=== PATIENT | male | born 1955 | race Caucasian/White ===

== ENCOUNTER 2016-11-30 19:09 | Emergency (ER) | payer BC, OTHER ==
[~2016-11-30] VITALS: Ht 182.9 cm; Wt 97.5 kg
[2016-11-30 19:13] VITALS: Ht 182.9 cm; Wt 97.5 kg
--- NOTE | 2016-11-30 19:30 | EN ---
Date/Time of Note Date/Time of Note DATE: 11/30/16 TIME: 19:28 ER Progress Note This 61-year-old male presents here in emergency department for complaints of dizziness nausea vomiting numbness and tingling all over upper extremities, he was working out in the sun today, he suddenly felt really nauseous, numbness and tingling, felt weak. Patient's complaining of numbness and tingling of her extremities. Family is here with the patient, verbalizes that the patient verbalized that he felt like he was going to , almost passing out and he felt really weak and dizzy, patient denies any chest pain at this time. Patient denies any shortness of breath at this time. Patient denies any headache. Patient states that he is unable to tolerate oral liquids and unable to tolerate oral food. Upon evaluation of the patient, stable at this time, ordered an EKG for the patient, patient is waiting for ER 1 that assignment at this time. BHARATH BOWENS NP November 30, 2016 19:30
[2016-11-30] MEDS ORDERED: SOD CHLORIDE 0.9% 1,000 ML IV STA ×2 (19:51→21:45)
--- NOTE | 2016-11-30 20:02 | ERA ---
ER Documentation Chief Complaint Date/Time DATE: 11/30/16 TIME: 19:55 Chief Complaint dizzy 6 hrs ago"states forgot to drink water and feels dehydrated, vomitin HPI This 61-year-old male previously healthy presenting for complaints of dizziness nausea, vomiting, numbness and tingling all over right upper extremity. He was working out in the sun today on his roof and he suddenly started to feel dizzy, nauseated, with lower back pain. He had generalized weakness and just did not feel right. He got off the roof and went inside. He tried to drink water and threw it up. He felt some transient tingling in his right upper extremity, now resolved. He denies any significant abdominal pain but feels the discomfort in his lower abdomen. No headache or vision disturbance. No focal weakness or numbness at this time . Family is here with the patient, verbalizes that the patient verbalized that he felt like he was going to , almost passing out and he felt really weak and dizzy. ROS All systems reviewed and are negative except as per history of present illness. Medications Home Meds No Active Prescriptions or Reported Meds Allergies Allergies: Coded Allergies: No Known Allergy (Unverified , 11/30/16) PMhx/Soc Medical and Surgical Hx: pt denies Medical Hx, pt denies Surgical Hx Hx Alcohol Use: No Hx Substance Use: No Hx Tobacco Use: No Smoking Status: Never smoker FmHx Family History: No coronary disease, No diabetes Physical Exam Vitals Vital Signs Date Time Temp Pulse Resp B/P Pulse Ox O2 Delivery O2 Flow Rate FiO2 11/30/16 19:13 97.5 60 20 121/68 98 Physical Exam Const: Somewhat pale, no distress, nontoxic, nondiaphoretic Head: Atraumatic Eyes: Normal Conjunctiva, PERRLA, EOMI, no nystagmus ENT: Dry oral mucosa Neck: Full range of motion. No JVD. No meningismus. Resp: Clear to auscultation bilaterally Cardio: Bradycardic with regular rhythm, no murmurs Abd: Soft, non tender, non distended. Normal bowel sounds Skin: No petechiae or rashes Back: No midline or flank tenderness Ext: No cyanosis, or edema. No calf tenderness. 2+ pulses in distal extremities, equal bilaterally. Neur: Awake and alert and oriented 3, cranial nerves intact, strength and sensations intact in all 4 extremities, normal gait Psych: Normal Mood and Affect Result Diagram: 11/30/16195511/30/161955 Results 24 hrs Laboratory Tests Test 11/30/16 19:56 11/30/16 20:14 White Blood Count 12.910^3/ul Red Blood Count 5.2510^6/ul Hemoglobin 16.1g/dl Hematocrit 47.4% Mean Corpuscular Volume 90.3fl Mean Corpuscular Hemoglobin 30.7pg Mean Corpuscular Hemoglobin Concent 34.0g/dl Red Cell Distribution Width 12.5% Platelet Count 86657^3/UL Mean Platelet Volume 11.1fl Neutrophils % 90.3% Lymphocytes % 4.4% Monocytes % 4.7% Eosinophils % 0.0% Basophils % 0.2% Nucleated Red Blood Cells % 0.0/100WBC Neutrophils # 11.610^3/ul Lymphocytes # 0.610^3/ul Monocytes # 0.610^3/ul Eosinophils # 0.010^3/ul Basophils # 0.010^3/ul Nucleated Red Blood Cells # 0.010^3/ul Prothrombin Time 13.4Sec Prothrombin Time Ratio 1.0 INR International Normalized Ratio 1.02 Activated Partial Thromboplast Time 28.4Sec D-Dimer 695.77ng/ml D-Dimer Comment Sodium Level 142mmol/L Potassium Level 4.0mmol/L Chloride Level 100mmol/L Carbon Dioxide Level 25mmol/L Anion Gap 21 Blood Urea Nitrogen 26mg/dl Creatinine 1.41mg/dl Glucose Level 120mg/dl Calcium Level 9.7mg/dl Total Bilirubin 0.7mg/dl Direct Bilirubin 0.00mg/dl Indirect Bilirubin 0.7mg/dl Aspartate Amino Transf (AST/SGOT) 35IU/L Alanine Aminotransferase (ALT/SGPT) 49IU/L Alkaline Phosphatase 67IU/L Creatine Kinase 120IU/L Creatine Kinase Index 0.9 Creatinine Kinase MB (Mass) 1.08ng/ml Troponin I < 0.012ng/ml Total Protein 8.1g/dl Albumin 5.0g/dl Globulin 3.10g/dl Albumin/Globulin Ratio 1.61 Bedside Glucose 91mg/dL Current Medications Medications (Trade) Dose Ordered Sig/Joe Route PRN Reason Start Time Stop Time Status Last Admin Dose Admin Sodium Chloride (NS) 1,000 ml @ 1,000 mls/hr Q1H STAT IV 11/30/16 19:51 11/30/16 20:50 DC 11/30/16 20:07 Ondansetron HCl 4 mg 4 mg ONCE STAT IV 11/30/16 20:04 11/30/16 20:05 DC 11/30/16 20:07 Sodium Chloride (NS) 1,000 ml @ 1,000 mls/hr Q1H ONCE IV 11/30/16 21:00 11/30/16 21:59 11/30/16 20:59 Procedures/MDM EKG #1: Rate/Rhythm: Sinus bradycardia at 54 bpm QRS, ST, T-waves: Incomplete right bundle branch block, no changes consistent w/ acute ischemia Impression: No evidence of ischemia or arrhythmia EKG #2: Rate/Rhythm: Sinus bradycardia at 50 bpm QRS, ST, T-waves: Incomplete right bundle branch block, no changes consistent w/ acute ischemia Impression: No evidence of ischemia or arrhythmia Chest x-ray: No evidence for active cardiopulmonary disease. Labs: CBC shows mild leukocytosis with 90% neutrophils BMP shows elevation of BUN and creatinine, elevated anion gap Blood glucose normal Troponin, CK-MB, CK normal Urine dipstick with 3+ ketones, 3+ blood, 1+ protein D-dimer elevated MDM: Patient is presenting with generalized weakness and dizziness, likely secondary to dehydration. His vitals were notable for sinus bradycardia upon arrival, but otherwise normal. 2 L of IV fluid were started. Labs showed leukocytosis with elevated neutrophil count. There is also elevation of BUN and creatinine, likely prerenal. Initial cardiac enzymes were negative. EKG only showed incomplete right bundle branch block without other evidence of ischemia. D- dimer was ordered given the patient is PERC negative but low risk for PE. It was slightly elevated, so CT angiogram of the chest was ordered to evaluate for pulmonary embolism and is pending. Urinalysis was sent and is pending. Urine dipstick showed 3+ ketones, 3+ blood, 1+ protein with negative nitrites and leuk esterase. Labs show no evidence of rhabdomyolysis. I have a low suspicion that his symptoms are secondary to acute coronary syndrome or aortic dissection. There is no evidence of acute surgical abdomen. I believe if the pending studies are normal and the patient is feeling back to his normal self, he will be able to be discharged after IV hydration with close outpatient follow -up. Patient will be signed out to Dr. Sheldon, who will follow up on the pending studies. I discussed the plan with the patient and his sister and they feel comfortable with the plan for discharge if everything is normal and he feels well. Departure Diagnosis: Primary Impression: Generalized weakness Additional Impressions: Dehydration Acute prerenal azotemia Condition: LASHONDA Voss MD November 30, 2016 20:02
[2016-11-30] MEDS ORDERED: ONDANSETRON 4 MG INJ IV STA (20:04)
[2016-11-30 20:05] LABS: ADD SCAN DIFF NO
[2016-11-30 20:13] LABS: ABNORMAL IP MESSAGE 1; BASOPHILS % 0.2 % (0.0-2.0); HEMATOCRIT 47.4 % (42.0-52.0); HEMOGLOBIN 16.1 g/dl (14.0-18.0); LYMPHOCYTES # 0.6 10^3/ul (0.8-2.9); LYMPHOCYTES % 4.4 % (15.0-51.0); MEAN CORPUSCULAR HEMOGLOBIN 30.7 pg (29.0-33.0); MEAN CORPUSCULAR VOLUME 90.3 fl (82.0-101.0); MEAN PLATELET VOLUME 11.1 fl (7.4-10.4); MONOCYTE # 0.6 10^3/ul (0.3-0.9); MONOCYTES % 4.7 % (0.0-11.0); NEUTROPHIL # 11.6 10^3/ul (1.6-7.5); NEUTROPHILS % 90.3 % (39.0-77.0); PLATELET COUNT 234 10^3/UL (140-415); RED BLOOD COUNT 5.25 10^6/ul (4.70-6.10); RED CELL DISTRIBUTION WIDTH 12.5 % (11.5-14.5); WHITE BLOOD COUNT 12.9 10^3/ul (4.8-10.8)
[2016-11-30 20:25] LABS: CHLORIDE 100 mmol/L (97-110); INR 1.02; PROTIME 13.4 Sec (12.2-14.2)
[2016-11-30 20:26] LABS: PARTIAL THROMBOPLASTIN TIME 28.4 Sec (25.0-35.0); SODIUM 142 mmol/L (135-144)
[2016-11-30 20:28] LABS: ALBUMIN/GLOBULIN RATIO 1.61; ALKALINE PHOSPHATASE 67 IU/L (42-121); ANION GAP 21 (8-16); ASPARTATE AMINO TRANSFERASE 35 IU/L (15-46); BILIRUBIN,INDIRECT 0.7 mg/dl (0-1.1); BILIRUBIN,TOTAL 0.7 mg/dl (0.2-1.3); CARBON DIOXIDE 25 mmol/L (21-31); CREATININE 1.41 mg/dl (0.61-1.24); TOTAL PROTEIN 8.1 g/dl (6.1-8.1)
[2016-11-30 20:29] LABS: ALANINE AMINOTRANSFERASE 49 IU/L (13-69); BLOOD UREA NITROGEN 26 mg/dl (7-20); CALCIUM 9.7 mg/dl (8.4-10.2); CREATINE KINASE 120 IU/L (23-200); D-DIMER 695.77 ng/ml (<460); GLUCOSE 120 mg/dl (70-220)
[2016-11-30 20:38] LABS: CK-MB 1.08 ng/ml (0.0-2.4)
[2016-11-30 20:40] LABS: TROPONIN-I < 0.012 ng/ml (0.00-0.12)
[2016-11-30 21:00] LABS: URINE BLOOD (Dip) POC 3+ (NEGATIVE)
[2016-11-30] MEDS ORDERED: SOD CHLORIDE 0.9% 1,000 ML IV ONE (21:00)
--- NOTE | 2016-11-30 21:00 | RADRPT ---
PROCEDURE: XR Chest. CLINICAL INDICATION: Chest Pain. TECHNIQUE: Single frontal view of the chest was obtained. COMPARISON: None. FINDINGS: The cardiomediastinal silhouette is normal size. Pulmonary vasculature is within normal limits. Th e lungs are clear. No signs of pleural fluid or pneumothorax are seen. The osseous structures and soft tissues are unre markable. IMPRESSION: No evidence for active cardiopulmonary disease. RPTAT: HBST .Ricardo Dobbs MD, MD Date Time Electronically viewed and signed by .Ricardo Dobbs MD, on 11/30/2016 21:00 .T/
[2016-11-30 21:12] LABS: ADD UMIC YES; URINE BILIRUBIN (Dip) NEGATIVE (NEGATIVE); URINE BLOOD (Dip) 3+ (NEGATIVE); URINE COLOR LT. YELLOW (YELLOW); URINE GLUCOSE (Dip) NEGATIVE (NEGATIVE); URINE KETONES (Dip) 3+ (NEGATIVE); URINE LEUKOCYTE ESTERASE (Dip) NEGATIVE (NEGATIVE); URINE NITRITE (Dip) NEGATIVE (NEGATIVE); URINE TOTAL PROTEIN (Dip) 1+ (NEGATIVE); URINE UROBILINOGEN (Dip) 0.2 E.U./dL (0.1-1.0)
[2016-11-30 21:33] LABS: SQUAMOUS EPITHELIAL CELL,UR FEW
[2016-11-30 21:35] LABS: BACTERIA,URINE RARE; URINE RBCS NONE SEEN /HPF (0)
[2016-11-30] MEDS ORDERED: IOHEXOL 100 ML ONE ×2 (21:49)
[2016-11-30] MEDS ORDERED: SOD CHLORIDE 0.9% 100 ML ONE (21:49)
--- NOTE | 2016-11-30 23:28 | RADRPT ---
PROCEDURE: CT angiogram of the chest with contrast. CLINICAL INDICATION: Chest pain. TECHNIQUE: CT angiogram of the chest was obtained using a multi-detector high-resolution CT. Con tiguous axial images were obtained during the dynamic injection of 125 cc of Omnipaque 350 intraveno us contrast. Coronal and sagittal reformatted images were obtained. 3-D reformatted images were al so obtained. Images were reviewed on a PACS workstation. One or more of the following dose reduction techniques were used: - Automated exposure control. - Adjustment of the mA and/or kV according to patient size. - Use of iterative reconstruction technique. Exam CTD/vol = 11.62 mGy. Total exam DLP = 550.61 mGy-cm. COMPARISON: None. FINDINGS: The main pulmonary artery followed to the segmental divisions are well opacified. There is no filli ng defect or evidence of pulmonary embolism. The heart is normal in size. There is no pericardial thickening or effusion. The aorta is of normal course and caliber without evidence of aneurysm or d issection. There is no evidence of chest wall mass. The visualized thyroid is unremarkable. There are no enla rged axillary lymph nodes. There are no enlarged mediastinal or hilar lymph nodes by CT criteria. T here is a subpleural cyst within the anterior left upper lobe. There is no parenchymal nodule or con solidation. There is no pleural effusion. The central tracheobronchial tree is within normal limit s. Limited evaluation of the upper abdomen demonstrates multiple hepatic cysts with the largest measuri ng 5.2 x 4.0 cm. There are bilateral small renal cysts and mild perinephric stranding. IMPRESSION: No evidence of pulmonary embolism or aortic dissection. Multiple hepatic and bilateral renal cysts. .Eleuterio Alfonso MD, MD Date Time Electronically viewed and signed by .Eleuterio Alfonso MD, MD on 11/30/2016 23:27 .T/
[2016-11-30] MEDS ORDERED: CEPH-443 PO (23:50)
[2016-12-01 00:07] VITALS: BP 132/85; PULSE 68; RESP 18
== END 2016-12-01 00:06 | disposition home or self-care (01) ==
LOC: E/R 19:09
DX: R53.1 Weakness (principal); E86.0 Dehydration; R39.2 Extrarenal uremia; R11.2 Nausea with vomiting, unspecified; R07.9 Chest pain, unspecified
CPT/HCPCS: 36415; 71010; 71275; 80053; 81001; 82550; 82553; 82962; 84484; 85025; 85378; 85610; 85730; 93005; 96374; 99285; J2405; J7030; Q9967; 81003